=== PATIENT | male | born 1960 | race African-American/Black ===

== ENCOUNTER 2017-07-13 05:36 | Emergency (ER) | payer OTHER ==
[~2017-07-13] VITALS: Ht 172.7 cm; Wt 80.0 kg
[~2017-07-13 05:36] MED LIST: ATOR10TA69 PO; AZAT50TA24 PO; INSU10VI4 SQ; PANT40TA4 PO; PRED1TAB PO
[2017-07-13] MEDS ORDERED: SODIUM CHLORIDE 0.9% 1,000 ML IV ONE (06:11)
[2017-07-13 06:36] LABS: HEMATOCRIT. 38.1 % (42.0-52.0); HEMOGLOBIN. 12.2 g/dL (14.0-18.0); MEAN CORPUSCULAR VOLUME 97.2 fL (80.0-94.0); MEAN PLATELET VOLUME 6.4 fl (7.4-10.4); PLATELET 608 x1000/uL (130-400); RED BLOOD CELL COUNT 3.92 mill/uL (4.7-6.1); RED CELL DISTRIBUTION WIDTH 19.9 % (11.6-14.6)
[2017-07-13 06:40] LABS: CHLORIDE 102 mEq/L (98-107)
[2017-07-13 07:34] LABS: PLATELET ESTIMATE INCREASED
[2017-07-13 08:38] LABS: CLARITY URINE CLEAR (CLEAR); COLOR URINE YELLOW (YELLOW); KETONES URINE NEGATIVE (NEGATIVE); LEUKOCYTE ESTERASE URINE NEGATIVE (NEGATIVE); NITRITE URINE NEGATIVE (NEGATIVE); OCCULT BLOOD URINE NEGATIVE (NEGATIVE); PH URINE 5.5 (4.5-8.0); PROTEIN URINE 3+ (NEGATIVE); SPECIFIC GRAVITY URINE 1.013 (1.005-1.030); UROBILINOGEN URINE 0.2 E.U./dL (0.2-1.0)
[2017-07-13 10:37] VITALS: BP 156/86
== END 2017-07-13 11:27 | disposition home or self-care (01) ==
LOC: ER 05:36
DX: E11.649 Type 2 diabetes mellitus with hypoglycemia without coma (principal); I13.0 Hypertensive heart and chronic kidney disease with heart failure and stage 1 through stage 4 chronic kidney disease, or unspecified chronic kidney disease; M32.9 Systemic lupus erythematosus, unspecified; D72.829 Elevated white blood cell count, unspecified; E78.00 Pure hypercholesterolemia, unspecified; R94.31 Abnormal electrocardiogram [ECG] [EKG]; E11.22 Type 2 diabetes mellitus with diabetic chronic kidney disease; N18.9 Chronic kidney disease, unspecified; I50.9 Heart failure, unspecified; Z86.73 Personal history of transient ischemic attack (TIA), and cerebral infarction without residual deficits; Z98.42 Cataract extraction status, left eye; Z79.4 Long term (current) use of insulin
CPT/HCPCS: 36415; 80053; 81003; 82962; 83880; 84484; 85025; 93005; 96360; 96361; 99285; J7030

== ENCOUNTER 2017-07-21 09:56 | Emergency (ER) | payer OTHER ==
[~2017-07-21] VITALS: Ht 175.3 cm; Wt 80.0 kg
[2017-07-21] MEDS ORDERED: DEXTROSE 50% WATER 50ML SYRINGE IV ONE ×2 (10:15→10:17)
[2017-07-21 10:53] LABS: CHLORIDE 102 mEq/L (98-107)
[2017-07-21 10:54] LABS: BASOPHILS % 0.5 % (0.0-2.0); EOSINOPHILS % 0.8 % (0.0-5.0); HEMATOCRIT. 37.3 % (42.0-52.0); HEMOGLOBIN. 12.2 g/dL (14.0-18.0); LYMPHOCYTES % 9.1 % (20.0-50.0); MEAN CORPUSCULAR HEMOGLOBIN 32.2 pg (28.0-32.0); MEAN CORPUSCULAR VOLUME 98.1 fL (80.0-94.0); MEAN PLATELET VOLUME 7.6 fl (7.4-10.4); MONOCYTES % 9.1 % (2.0-8.0); NEUTROPHILS % 80.5 % (40.0-76.0); PLATELET 376 x1000/uL (130-400); RED CELL DISTRIBUTION WIDTH 19.4 % (11.6-14.6)
[2017-07-21 11:04] LABS: CREATINE KINASE MB FRACTION 2.3 ng/mL (0.5-3.6)
[2017-07-21 13:24] VITALS: BP 168/92
== END 2017-07-21 14:18 | disposition home or self-care (01) ==
LOC: ER 10:15
DX: E11.649 Type 2 diabetes mellitus with hypoglycemia without coma (principal); I11.0 Hypertensive heart disease with heart failure; I50.9 Heart failure, unspecified; M32.9 Systemic lupus erythematosus, unspecified; Z86.73 Personal history of transient ischemic attack (TIA), and cerebral infarction without residual deficits; Z79.4 Long term (current) use of insulin
CPT/HCPCS: 36415; 71045; 80053; 82553; 82962; 84484; 85025; 93005; 96374; 99285

== ENCOUNTER 2017-07-28 07:30 | Inpatient (IN) | payer OTHER ==
[~2017-07-28] VITALS: Ht 175.3 cm; Wt 89.8 kg
[2017-07-28 08:23] LABS: HEMATOCRIT. 33.5 % (42.0-52.0); HEMOGLOBIN. 11.3 g/dL (14.0-18.0); MEAN CORPUSCULAR HEMOGLOBIN 32.5 pg (28.0-32.0); MEAN CORPUSCULAR VOLUME 96.7 fL (80.0-94.0); MEAN PLATELET VOLUME 6.8 fl (7.4-10.4); PLATELET 419 x1000/uL (130-400); RED BLOOD CELL COUNT 3.47 mill/uL (4.7-6.1); RED CELL DISTRIBUTION WIDTH 18.1 % (11.6-14.6)
[2017-07-28 08:30] LABS: CHLORIDE 103 mEq/L (98-107)
[2017-07-28 10:00] VITALS: BP 173/96
[2017-07-28 10:06] LABS: PLATELET ESTIMATE SLIGHTLY INCREASED
[2017-07-28 10:09] VITALS: BP 173/96
[2017-07-28] MEDS ORDERED: DEXTROSE 50% WATER 50ML SYRINGE IV PRN ×2 (11:45→12:15)
[2017-07-28] MEDS ORDERED: DOCUSATE SODIUM 100MG CAPSULE PO PRN (12:30)
[2017-07-28] MEDS ORDERED: GUAIFENESIN 200MG/10ML SUGAR FREE UDC PO PRN (12:30)
[2017-07-28] MEDS ORDERED: IPRATROPIUM/ALBUTEROL 0.5-3(2.5)MG/3ML NEB INH PRN (12:30)
[2017-07-28] MEDS: BLOOD SUGAR DIAGNOSTIC STRIP TEST SCH ×3 (12:40→22:02)
[2017-07-28] MEDS: INSULIN LISPRO 100 UNITS/ML SUBCUT SCH ×3 (12:50→22:02)
[2017-07-28] MEDS ORDERED: CLONIDINE 0.1MG TABLET PO PRN (13:45)
[2017-07-28] MEDS: DEXT 5%/0.45% NACL 1000ML 1,000 ML IV SCH (15:35)
[2017-07-28] MEDS: PANTOPRAZOLE 40MG DR TABLET PO SCH (15:35)
[2017-07-28] MEDS: AMLODIPINE 2.5MG TABLET PO SCH ×2 (15:35→21:59)
[2017-07-28 16:02] VITALS: BP 150/97
[2017-07-28] MEDS: IPRATROPIUM/ALBUTEROL 0.5-3(2.5)MG/3ML NEB HHN SCH ×2 (16:45→20:47)
[2017-07-28 20:00] VITALS: BP 134/65
[2017-07-28 21:25] LABS: CREATINE KINASE MB FRACTION 1.7 ng/mL (0.5-3.6)
[2017-07-28 23:45] VITALS: BP_SYST 123; BP_SYST 126; BP_SYST 134; BP_DIAS 68; BP_DIAS 75
[2017-07-29] MEDS: IPRATROPIUM/ALBUTEROL 0.5-3(2.5)MG/3ML NEB HHN SCH ×6 (01:29→21:19)
[2017-07-29 04:01] VITALS: BP 129/69
[2017-07-29] MEDS: DEXT 5%/0.45% NACL 1000ML 1,000 ML IV SCH ×2 (05:22→15:56)
[2017-07-29] MEDS: BLOOD SUGAR DIAGNOSTIC STRIP TEST SCH ×5 (06:20→20:18)
[2017-07-29] MEDS: INSULIN LISPRO 100 UNITS/ML SUBCUT SCH ×5 (06:35→21:13)
[2017-07-29] MEDS ORDERED: GLUCAGON,HUMAN RECOMBINANT 1MG/VIAL ONE (06:37)
[2017-07-29 06:40] LABS: *BARBITURATES SCREEN URINE NEGATIVE (NEGATIVE); *COCAINE SCREEN URINE NEGATIVE (NEGATIVE); CANNABINOID URINE SCREEN NEGATIVE (NEGATIVE); METHADONE URINE SCREEN NEGATIVE (NEGATIVE); OPIATES URINE SCREEN NEGATIVE (NEGATIVE); PHENCYCLIDINE URINE SCREEN NEGATIVE (NEGATIVE)
[2017-07-29 06:41] LABS: *AMPHETAMINES SCREEN URINE NEGATIVE (NEGATIVE); *BENZODIAZEPINES SCREEN URINE NEGATIVE (NEGATIVE)
[2017-07-29 07:19] LABS: BASOPHILS % 0.6 % (0.0-2.0); EOSINOPHILS % 2.3 % (0.0-5.0); HEMATOCRIT. 30.5 % (42.0-52.0); HEMOGLOBIN. 10.2 g/dL (14.0-18.0); LYMPHOCYTES % 10.9 % (20.0-50.0); MEAN CORPUSCULAR HEMOGLOBIN 32.1 pg (28.0-32.0); MEAN CORPUSCULAR VOLUME 96.1 fL (80.0-94.0); MEAN PLATELET VOLUME 6.9 fl (7.4-10.4); MONOCYTES % 12.4 % (2.0-8.0); NEUTROPHILS % 73.8 % (40.0-76.0); PLATELET 409 x1000/uL (130-400); RED BLOOD CELL COUNT 3.18 mill/uL (4.7-6.1); RED CELL DISTRIBUTION WIDTH 18.9 % (11.6-14.6)
[2017-07-29 07:24] VITALS: BP 155/83
[2017-07-29 07:50] LABS: CHLORIDE 104 mEq/L (98-107)
[2017-07-29] MEDS: PANTOPRAZOLE 40MG DR TABLET PO SCH (08:34)
[2017-07-29] MEDS: AMLODIPINE 2.5MG TABLET PO SCH ×2 (08:35→21:12)
[2017-07-29 11:50] VITALS: BP 174/93
[2017-07-29 11:55] VITALS: BP 164/92
[2017-07-29] MEDS ORDERED: CELL5 PO (12:55)
[2017-07-29] MEDS ORDERED: ATOR40TA70 PO (12:55)
[2017-07-29] MEDS ORDERED: WARF3TAB58 PO (12:55)
[2017-07-29] MEDS ORDERED: PRED5TAB PO (12:55)
[2017-07-29] MEDS ORDERED: CARV6.2548 PO (12:55)
[2017-07-29] MEDS ORDERED: FOLI-43 PO (12:55)
[2017-07-29] MEDS: CARVEDILOL 3.125 MG TABLET PO SCH ×2 (14:51→21:12)
[2017-07-29 15:53] VITALS: BP 115/56
[2017-07-29] MEDS: ENOXAPARIN 40MG/0.4ML SYR SUBCUT SCH (18:44)
[2017-07-29 20:00] VITALS: BP_SYST 131; BP_SYST 132; BP_SYST 158; BP_DIAS 70; BP_DIAS 77; BP_DIAS 97
[2017-07-29] MEDS ORDERED: ATORVASTATIN CALCIUM 10MG TABLET PO SCH ×2 (21:00)
[2017-07-29 22:49] LABS: CLARITY URINE CLEAR (CLEAR); COLOR URINE YELLOW (YELLOW); KETONES URINE NEGATIVE (NEGATIVE); LEUKOCYTE ESTERASE URINE NEGATIVE (NEGATIVE); NITRITE URINE NEGATIVE (NEGATIVE); OCCULT BLOOD URINE TRACE (NEGATIVE); PROTEIN URINE 3+ (NEGATIVE); SPECIFIC GRAVITY URINE 1.015 (1.005-1.030); UROBILINOGEN URINE 0.2 E.U./dL (0.2-1.0)
[2017-07-30] VITALS (7 sets, daily range): BP systolic 125–160; BP diastolic 71–93
[2017-07-30] MEDS: BLOOD SUGAR DIAGNOSTIC STRIP TEST SCH ×5 (00:21→16:00)
[2017-07-30] MEDS: IPRATROPIUM/ALBUTEROL 0.5-3(2.5)MG/3ML NEB HHN SCH ×5 (00:36→15:43)
[2017-07-30] MEDS: INSULIN LISPRO 100 UNITS/ML SUBCUT SCH ×5 (00:37→18:40)
[2017-07-30] MEDS: DEXT 5%/0.45% NACL 1000ML 1,000 ML IV SCH (04:26)
[2017-07-30 06:58] LABS: HEMATOCRIT. 32.6 % (42.0-52.0); HEMOGLOBIN. 10.3 g/dL (14.0-18.0); MEAN CORPUSCULAR HEMOGLOBIN 32.3 pg (28.0-32.0); MEAN CORPUSCULAR VOLUME 102.4 fL (80.0-94.0); MEAN PLATELET VOLUME 6.7 fl (7.4-10.4); PLATELET 322 x1000/uL (130-400); RED BLOOD CELL COUNT 3.19 mill/uL (4.7-6.1); RED CELL DISTRIBUTION WIDTH 19.8 % (11.6-14.6)
[2017-07-30] MEDS: AMLODIPINE 2.5MG TABLET PO SCH (09:40)
[2017-07-30] MEDS: CARVEDILOL 3.125 MG TABLET PO SCH (09:40)
[2017-07-30] MEDS: PANTOPRAZOLE 40MG DR TABLET PO SCH (09:40)
[2017-07-30] MEDS: ENOXAPARIN 40MG/0.4ML SYR SUBCUT SCH (09:41)
[2017-07-30 09:54] LABS: INR 1.5; PROTHROMBIN TIME 15.3 sec (9.4-11.6)
[2017-07-30 10:28] LABS: CHLORIDE 104 mEq/L (98-107)
[2017-07-30 11:19] LABS: LDL CHOLESTEROL 83 mg/dL (5-100)
[2017-07-30 11:20] LABS: HDL CHOLESTEROL 39 mg/dL (40-59)
[2017-07-30] MEDS ORDERED: MYCOPHENOLATE MOFETIL 500MG TABLET PO SCH (17:00)
[2017-07-30] MEDS ORDERED: ENOXAPARIN 30MG/0.3ML SYR SUBCUT SCH (17:00)
[2017-07-30] MEDS ORDERED: FOLIC ACID 1MG TABLET PO SCH (17:15)
[2017-07-30] MEDS ORDERED: PREDNISONE 5MG TABLET PO SCH (17:15)
[2017-07-30] MEDS ORDERED: COR3 PO (17:28)
[2017-07-30] MEDS ORDERED: FAMO20TA8 PO (17:28)
[2017-07-30] MEDS ORDERED: INSLIS SUBCUT (17:28)
[2017-07-30] MEDS ORDERED: ATORVASTATIN CALCIUM 40MG TABLET PO SCH (21:00)
[2017-07-31 01:07] LABS: PLATELET ESTIMATE NORMAL
[2017-07-31] MEDS ORDERED: FAMOTIDINE 20MG TABLET PO SCH (09:00)
== END 2017-07-30 19:05 | disposition home or self-care (01) | DRG 637 ==
LOC: ER 07:39 → EDBEDREQ 08:12 → ENRESERV 08:44 → 6WST 08:54 → EDBEDREQ 08:59 → 6WST 07-29 08:09
PROVIDERS: ADMIT Internal Medicine; ATTEND Internal Medicine
DX: E10.649 Type 1 diabetes mellitus with hypoglycemia without coma (principal); G93.40 Encephalopathy, unspecified; E43 Unspecified severe protein-calorie malnutrition; I42.9 Cardiomyopathy, unspecified; M32.9 Systemic lupus erythematosus, unspecified; E10.21 Type 1 diabetes mellitus with diabetic nephropathy; I50.9 Heart failure, unspecified; I13.0 Hypertensive heart and chronic kidney disease with heart failure and stage 1 through stage 4 chronic kidney disease, or unspecified chronic kidney disease; N18.3 Chronic kidney disease, stage 3 (moderate); R79.89 Other specified abnormal findings of blood chemistry; D63.1 Anemia in chronic kidney disease; E10.22 Type 1 diabetes mellitus with diabetic chronic kidney disease; E10.36 Type 1 diabetes mellitus with diabetic cataract; E78.00 Pure hypercholesterolemia, unspecified; E78.5 Hyperlipidemia, unspecified; H54.62 Unqualified visual loss, left eye, normal vision right eye; I49.1 Atrial premature depolarization; Z79.4 Long term (current) use of insulin; Z82.49 Family history of ischemic heart disease and other diseases of the circulatory system; Z68.29 Body mass index [BMI] 29.0-29.9, adult; Z86.73 Personal history of transient ischemic attack (TIA), and cerebral infarction without residual deficits; Z87.01 Personal history of pneumonia (recurrent)
CPT/HCPCS: 36415; 71045; 80053; 80061; 80305; 81003; 82553; 82565; 82962; 83036; 83735; 83880; 84443; 84484; 85025; 85610; 93005; 93306; 93970; 94640; 99285; A6261; C1893; J1610; J1650; J1815; J3490; J7620

== ENCOUNTER 2020-02-22 18:55 | Emergency (ER) | payer OTHER ==
[~2020-02-22] VITALS: Ht 170.2 cm; Wt 82.0 kg
[~2020-02-22 18:55] MED LIST changes: -ATOR10TA69 PO; +ATOR40TA70 PO; -AZAT50TA24 PO; +CELL5 PO; +COR3 PO; +FAMO20TA8 PO; +FOLI-43 PO; +INSLIS SUBCUT; -PRED1TAB PO; +PRED5TAB PO
[2020-02-22] MEDS ORDERED: DEXTROSE 50% WATER 50ML SYRINGE IV ONE (19:15)
[2020-02-22] MEDS ORDERED: SODIUM CHLORIDE 0.9% 500 ML IV ONE (20:15)
[2020-02-22 20:17] LABS: HEMATOCRIT. 34.2 % (42.0-52.0); HEMOGLOBIN. 10.8 g/dL (14.0-18.0); MEAN CORPUSCULAR HEMOGLOBIN 29.6 pg (28.0-32.0); MEAN CORPUSCULAR VOLUME 93.7 fL (80.0-94.0); MEAN PLATELET VOLUME 7.7 fl (7.4-10.4); PLATELET 484 x1000/uL (130-400); RED BLOOD CELL COUNT 3.65 mill/uL (4.7-6.1); RED CELL DISTRIBUTION WIDTH 14.9 % (11.6-14.6)
[2020-02-22 20:21] LABS: CHLORIDE 101 mEq/L (98-107)
[2020-02-22 20:25] LABS: ETHANOL BLOOD < 10 mg/dL
[2020-02-22 20:30] LABS: CREATINE KINASE 68 IU/L (39-308)
[2020-02-22 20:35] LABS: PLATELET ESTIMATE INCREASED
[2020-02-22 21:34] LABS: CLARITY URINE CLEAR (CLEAR); COLOR URINE YELLOW (YELLOW); KETONES URINE NEGATIVE (NEGATIVE); LEUKOCYTE ESTERASE URINE 1+ (NEGATIVE); NITRITE URINE NEGATIVE (NEGATIVE); OCCULT BLOOD URINE 1+ (NEGATIVE); PROTEIN URINE 1+ (NEGATIVE); UROBILINOGEN URINE 0.2 E.U./dL (0.2-1.0)
[2020-02-22 21:53] LABS: *AMPHETAMINES SCREEN URINE NEGATIVE (NEGATIVE); *BARBITURATES SCREEN URINE NEGATIVE (NEGATIVE); *BENZODIAZEPINES SCREEN URINE NEGATIVE (NEGATIVE); *COCAINE SCREEN URINE NEGATIVE (NEGATIVE)
[2020-02-22 21:54] LABS: CANNABINOID URINE SCREEN NEGATIVE (NEGATIVE); METHADONE URINE SCREEN NEGATIVE (NEGATIVE); OPIATES URINE SCREEN PRESUMTIVE POSITIVE (NEGATIVE); PHENCYCLIDINE URINE SCREEN NEGATIVE (NEGATIVE)
[2020-02-22 23:20] VITALS: BP 147/84
== END 2020-02-23 00:05 | disposition short-term general hospital (02) ==
LOC: ER 18:55
DX: E11.649 Type 2 diabetes mellitus with hypoglycemia without coma (principal); G93.40 Encephalopathy, unspecified; I48.91 Unspecified atrial fibrillation; I11.0 Hypertensive heart disease with heart failure; I50.9 Heart failure, unspecified; M32.9 Systemic lupus erythematosus, unspecified; R41.82 Altered mental status, unspecified; F17.200 Nicotine dependence, unspecified, uncomplicated; Z86.73 Personal history of transient ischemic attack (TIA), and cerebral infarction without residual deficits; Z79.899 Other long term (current) drug therapy
CPT/HCPCS: 36415; 70450; 71045; 80053; 80305; 80320; 81003; 82550; 82962; 83690; 83880; 84484; 85025; 93005; 96374; 99291; J7040; G0480

== ENCOUNTER 2020-08-04 19:42 | Emergency (ER) | payer OTHER ==
[~2020-08-04] VITALS: Ht 172.7 cm; Wt 82.0 kg
[~2020-08-04 19:42] MED LIST changes: -PANT40TA4 PO; +PANT40TA51 PO
[2020-08-04] MEDS ORDERED: DEXTROSE 50% WATER 50ML SYRINGE IV ONE (20:15)
[2020-08-04 22:58] LABS: BASOPHILS % 0.6 % (0.0-2.0); EOSINOPHILS % 1.2 % (0.0-5.0); HEMATOCRIT. 36.7 % (42.0-52.0); HEMOGLOBIN. 11.7 g/dL (14.0-18.0); LYMPHOCYTES % 9.9 % (20.0-50.0); MEAN CORPUSCULAR HEMOGLOBIN 30.7 pg (28.0-32.0); MEAN CORPUSCULAR VOLUME 95.9 fL (80.0-94.0); MEAN PLATELET VOLUME 7.1 fl (7.4-10.4); MONOCYTES % 9.7 % (2.0-8.0); NEUTROPHILS % 78.6 % (40.0-76.0); PLATELET 364 x1000/uL (130-400); RED BLOOD CELL COUNT 3.82 mill/uL (4.7-6.1); RED CELL DISTRIBUTION WIDTH 14.2 % (11.6-14.6)
[2020-08-04 23:05] LABS: CHLORIDE 107 mEq/L (98-107)
[2020-08-04 23:08] LABS: INR 1.3; PROTHROMBIN TIME 13.9 sec (9.6-11.0)
[2020-08-04 23:09] LABS: ETHANOL BLOOD < 10 mg/dL
[2020-08-04 23:13] LABS: CLARITY URINE CLEAR (CLEAR); COLOR URINE YELLOW (YELLOW); KETONES URINE NEGATIVE (NEGATIVE); LEUKOCYTE ESTERASE URINE 1+ (NEGATIVE); NITRITE URINE NEGATIVE (NEGATIVE); OCCULT BLOOD URINE TRACE (NEGATIVE); PROTEIN URINE 2+ (NEGATIVE); SPECIFIC GRAVITY URINE 1.007 (1.005-1.030); UROBILINOGEN URINE 0.2 E.U./dL (0.2-1.0)
[2020-08-04 23:22] LABS: *AMPHETAMINES SCREEN URINE NEGATIVE (NEGATIVE); *BARBITURATES SCREEN URINE NEGATIVE (NEGATIVE)
[2020-08-04 23:23] LABS: *BENZODIAZEPINES SCREEN URINE NEGATIVE (NEGATIVE); *COCAINE SCREEN URINE NEGATIVE (NEGATIVE); METHADONE URINE SCREEN NEGATIVE (NEGATIVE); OPIATES URINE SCREEN NEGATIVE (NEGATIVE); PHENCYCLIDINE URINE SCREEN NEGATIVE (NEGATIVE)
[2020-08-04 23:24] LABS: CANNABINOID URINE SCREEN NEGATIVE (NEGATIVE)
[2020-08-04 23:30] VITALS: BP 161/81
== END 2020-08-04 23:45 | disposition admitted as inpatient to this hospital (09) ==
LOC: ER 19:42 → CANBEDREQ 08-05 01:38
DX: E11.649 Type 2 diabetes mellitus with hypoglycemia without coma (principal); E87.2 Acidosis; I11.0 Hypertensive heart disease with heart failure; I50.9 Heart failure, unspecified; N28.9 Disorder of kidney and ureter, unspecified; Z13.9 Encounter for screening, unspecified; Z53.29 Procedure and treatment not carried out because of patient's decision for other reasons; Z79.899 Other long term (current) drug therapy; Z86.73 Personal history of transient ischemic attack (TIA), and cerebral infarction without residual deficits
CPT/HCPCS: 36415; 71045; 80053; 80305; 80320; 81003; 82962; 83605; 84145; 84484; 85025; 93005; 96374; 99285; G0480

== ENCOUNTER 2020-09-04 01:37 | Emergency (ER) | payer OTHER ==
[~2020-09-04] VITALS: Ht 172.7 cm; Wt 78.0 kg
[2020-09-04 04:26] VITALS: BP 142/73
== END 2020-09-04 04:42 | disposition home or self-care (01) ==
LOC: ER 01:37
DX: E11.649 Type 2 diabetes mellitus with hypoglycemia without coma (principal); Z79.4 Long term (current) use of insulin
CPT/HCPCS: 82962; 93005; 99283